=== PATIENT | male | born 1995 | race Caucasian/White ===

== ENCOUNTER 2023-04-29 18:21 | Emergency (ER) | payer MEDICAID ==
[~2023-04-29] VITALS: Ht 182.9 cm; Wt 71.7 kg
[2023-04-29 18:21] VITALS: TEMP 98.5
[2023-04-29] MEDS ORDERED: SUCCINYLCHOLINE CHLORIDE 20 MG/ML VIAL IV ONE ×3 (18:29→20:30)
[2023-04-29] MEDS ORDERED: ETOMIDATE 2 MG/ML VIAL IV ONE ×3 (18:29→20:30)
[2023-04-29 18:45] VITALS: BP 145/80; O2SAT 97
[2023-04-29] MEDS ORDERED: MIDAZOLAM HCL 5 MG/5ML VIAL ONE (18:45)
[2023-04-29] MEDS ORDERED: FENTANYL PF 100MCG/2ML AMPUL ONE (18:58)
[2023-04-29] MEDS ORDERED: FENTANYL PF 100MCG/2ML AMPUL IV ONE (19:00)
[2023-04-29] MEDS ORDERED: IV MANNITOL 20% 250 ML IV PRN (19:00)
[2023-04-29] MEDS ORDERED: IV MANNITOL 20% 250 ML in PREMIX 1 EA IV PRN (19:30)
[2023-04-29] MEDS ORDERED: MIDAZOLAM HCL 5 MG/5ML VIAL IV ONE (20:30)
== END 2023-04-29 19:15 | disposition short-term general hospital (02) ==
LOC: ER 18:28
DX: S09.8XXA Other specified injuries of head, initial encounter (principal); J96.90 Respiratory failure, unspecified, unspecified whether with hypoxia or hypercapnia; Y93.39 Activity, other involving climbing, rappelling and jumping off; Y93.89 Activity, other specified; Y92.89 Other specified places as the place of occurrence of the external cause; Y99.8 Other external cause status
CPT/HCPCS: 99291; 31500; 71045 ×2; J3010; J0330; J3490; A4216; J2150; J2250